=== PATIENT | female | born 1960 | race Two or more races ===

== ENCOUNTER 2018-05-13 17:16 | Emergency (ER) | payer OTHER ==
[~2018-05-13] VITALS: Ht 152.4 cm; Wt 68.9 kg
[2018-05-13] MEDS ORDERED: diphenhydrAMINE HCL 50 MG/ML VIAL ONE (17:44)
[2018-05-13] MEDS ORDERED: METOCLOPRAMIDE HCL 10 MG/2 ML VIAL ONE (17:44)
[2018-05-13 17:50] LABS: BASOPHILS # (AUTO) 0.2 /CMM (0.0-0.2); BASOPHILS % (AUTO) 2.7 % (0.0-2.0); EOSINOPHILS % (AUTO) 1.9 % (0.0-6.0); HEMATOCRIT 42 % (33-45); HEMOGLOBIN 13.9 g/dL (11.5-14.8); LYMPHOCYTES % (AUTO) 21.9 % (20.0-44.0); MEAN CORPUSCULAR HEMOGLOBIN 32 PG (26.0-33.0); MEAN CORPUSCULAR HGB CONC 34 g/dl (31.0-36.0); MEAN CORPUSCULAR VOLUME 94 fL (82-100); MONOCYTES % (AUTO) 11.5 % (2.0-12.0); NEUTROPHILS # (AUTO) 5.6 /CMM (1.8-8.9); PLATELET COUNT (AUTO) 255 /CMM (150-450); RDW COEFFICIENT OF VARIATION 12.4 (11.5-15.0); RED BLOOD CELL COUNT(AUTO) 4.42 MIL/uL (4.0-5.2)
[2018-05-13] MEDS: IV NS 0.9% 1,000 ML BAG IV ONE (17:52)
[2018-05-13] MEDS: diphenhydrAMINE HCL 50 MG/ML VIAL IV ONE (17:53)
[2018-05-13] MEDS: METOCLOPRAMIDE HCL 10 MG/2 ML VIAL IV ONE (17:59)
[2018-05-13] MEDS: IV NS 0.9% 250 ML BAG IV ONE (18:01)
[2018-05-13 18:03] LABS: CALCIUM, SERUM 8.9 mg/dL (8.5-10.1); CARBON DIOXIDE 24 mmol/L (21-32); CHLORIDE 104 mmol/L (98-107); CREATININE 1.4 mg/dL (0.6-1.3); GLUCOSE 123 mg/dL (74-106); POTASSIUM 3.9 mmol/L (3.5-5.1); SODIUM SERUM 137 mmol/L (136-145); UREA NITROGEN, BLOOD 16 mg/dL (7-18)
[2018-05-13 18:09] LABS: ALANINE AMINOTRANSFERASE 35 U/L (12-78); ALBUMIN 3.7 g/dL (3.4-5.0); ALKALINE PHOSPHATASE 99 U/L (46-116); ASPARTATE AMINOTRANSFERASE 17 U/L (15-37); BILIRUBIN,DIRECT 0.1 mg/dL (0.0-0.2); BILIRUBIN,TOTAL 0.5 mg/dL (0.2-1.0); TOTAL PROTEIN, SERUM 7.2 g/dL (6.4-8.2)
[2018-05-13 18:10] LABS: TROPONIN I < 0.017 ng/mL (0.00-0.056)
[2018-05-13 18:20] LABS: INR 0.93 (0.85-1.15)
--- NOTE | 2018-05-13 18:43 | NUR ---
transportation technician at bedside to take patient for CT
[2018-05-13] MEDS ORDERED: MORPHINE SULFATE INJ 4 MG/ML DISP.SYRIN ONE (18:46)
[2018-05-13] MEDS: MORPHINE SULFATE INJ 2 MG/ML DISP.SYRIN IV ONE (18:51)
--- NOTE | 2018-05-13 19:26 | NUR ---
RECEIVED REPORT FROM ZARA LEGER FOR [facility]. PT RESTING IN BED WITH NO S/S OF DISTRESS NOTED. WILL CONTINUE TO MONITOR PT
[2018-05-13] MEDS ORDERED: KETOROLAC TROMETHAMINE INJ 60 MG/2 ML VIAL IM ONE (19:30)
[2018-05-13] MEDS ORDERED: KETOROLAC TROMETHAMINE INJ 30 MG/ML VIAL ONE (19:32)
[2018-05-13] MEDS: KETOROLAC TROMETHAMINE INJ 30 MG/ML VIAL IV ONE (19:33)
--- NOTE | 2018-05-13 20:03 | NUR ---
Patient discharged to home in stable condition. Written and verbal after care instructions given. Patient verbalizes understanding of instruction.IV removed. Catheter intact and site benign. Pressure and 4x4 applied to site. No bleeding noted. PT AMBULATED WITH STEADY GAIT NOTED.PT WAS HELPED BY FAMILY MEMBER TO CAR, NO S/S OF DISTRESS UPON DISCHARGE.
[2018-05-13 20:05] VITALS: BP 124/71
== END 2018-05-13 20:06 | disposition home or self-care (01) ==
LOC: ER 17:20
DX: G43.909 Migraine, unspecified, not intractable, without status migrainosus (principal); N28.9 Disorder of kidney and ureter, unspecified; E78.00 Pure hypercholesterolemia, unspecified; R42 Dizziness and giddiness; F41.9 Anxiety disorder, unspecified
CPT/HCPCS: 36415; 70450-TC; 71045-TC; 80048-TC; 80076-TC; 84484-TC; 85025-TC; 85730-TC; A4216; A4606; J1200; J1885; J2270; J2765; J7030; J7050; Z7610

== ENCOUNTER 2019-10-07 11:19 | Emergency (ER) | payer OTHER ==
[~2019-10-07] VITALS: Ht 152.4 cm; Wt 72.6 kg
[2019-10-07 11:29] VITALS: BP 130/85
[2019-10-07] MEDS ORDERED: LORAZEPAM 0.5 MG TABLET ONE (12:58)
[2019-10-07] MEDS ORDERED: IBUPROFEN 400 MG TABLET ONE (12:58)
[2019-10-07] MEDS ORDERED: IBUPROFEN 400 MG TABLET PO ONE (13:00)
[2019-10-07] MEDS ORDERED: LORAZEPAM 0.5 MG TABLET PO ONE (13:00)
== END 2019-10-07 13:31 | disposition home or self-care (01) ==
LOC: ER 11:19
DX: H61.22 Impacted cerumen, left ear (principal); F41.9 Anxiety disorder, unspecified; E78.00 Pure hypercholesterolemia, unspecified

== ENCOUNTER 2020-12-18 20:02 | Emergency (ER) | payer OTHER ==
[~2020-12-18] VITALS: Ht 157.5 cm; Wt 72.6 kg
[2020-12-18] MEDS ORDERED: CYCLOBENZAPRINE 10 MG TABLET PO ONE (21:30)
[2020-12-18] MEDS ORDERED: DEXAMETHASONE SOD PHOSPHATE 4 MG/ML VIAL IM ONE (21:30)
[2020-12-18] MEDS ORDERED: KETOROLAC TROMETHAMINE INJ 30 MG/ML VIAL IM ONE (21:30)
--- NOTE | 2020-12-18 21:30 | NUR ---
C/O LOWER BACK PAIN RADIATING TO THE LLE
[2020-12-18] MEDS ORDERED: KETOROLAC TROMETHAMINE INJ 30 MG/ML VIAL ONE (21:58)
[2020-12-18] MEDS ORDERED: DEXAMETHASONE SOD PHOSPHATE 4 MG/ML VIAL ONE (21:58)
--- NOTE | 2020-12-18 22:08 | NUR ---
PT WAS TAKEN TO THE CT
[2020-12-18] MEDS ORDERED: TRAM50TA2 PO (22:48)
[2020-12-18] MEDS ORDERED: HYDR-4303 PO (23:59)
--- NOTE | 2020-12-18 23:59 | NUR ---
PT is medically stable for dc. Patient discharged to home in stable condition. Written and verbal after care instructions given. Patient verbalizes understanding of instruction.
[2020-12-19 00:15] VITALS: BP 135/85
== END 2020-12-19 00:15 | disposition home or self-care (01) ==
LOC: ER 20:05
DX: M54.5 Low back pain (principal); G89.29 Other chronic pain; F41.9 Anxiety disorder, unspecified; E78.00 Pure hypercholesterolemia, unspecified; Z79.899 Other long term (current) drug therapy
CPT/HCPCS: 72131; 96372 ×2; 99284; J1100; J1885

== ENCOUNTER 2021-11-22 12:22 | Emergency (ER) | payer OTHER ==
[~2021-11-22] VITALS: Ht 152.4 cm; Wt 65.8 kg
[~2021-11-22 12:22] MED LIST: HYDR-4303 PO
[2021-11-22] MEDS ORDERED: HYDROMORPHONE INJ 2 MG/ML DISP.SYRIN IM ONE (13:00)
[2021-11-22] MEDS ORDERED: KETOROLAC TROMETHAMINE INJ 60 MG/2 ML VIAL IM ONE (13:00)
[2021-11-22] MEDS ORDERED: CYCLOBENZAPRINE 10 MG TABLET PO ONE (13:00)
[2021-11-22] MEDS ORDERED: DEXAMETHASONE 1 MG TABLET PO ONE (13:00)
--- NOTE | 2021-11-22 13:00 | NUR ---
BIBS FOR C/O WORSENING CHRONIC BACK PAIN 06/18,NO TRAUMA. WILL CONTINUE TO MONITOR THE PATIENT.
[2021-11-22] MEDS ORDERED: HYDROMORPHONE INJ 2 MG/ML DISP.SYRIN ONE (13:13)
[2021-11-22] MEDS ORDERED: DEXAMETHASONE 1 MG TABLET ONE ×2 (13:17→13:24)
[2021-11-22] MEDS ORDERED: CYCLOBENZAPRINE 10 MG TABLET ONE ×2 (13:18→13:28)
[2021-11-22] MEDS ORDERED: KETOROLAC TROMETHAMINE INJ 30 MG/ML VIAL ONE (13:23)
[2021-11-22] MEDS ORDERED: HYDROMORPHONE 1 MG/1 ML DISP.SYRIN ONE (13:23)
[2021-11-22] MEDS ORDERED: DEXAMETHASONE 4 MG TABLET ONE (13:24)
[2021-11-22] MEDS ORDERED: NAPR-1009 PO (13:40)
[2021-11-22] MEDS ORDERED: CYCL5TAB PO (13:40)
[2021-11-22] MEDS ORDERED: METH4TAB3 PO (13:40)
[2021-11-22] MEDS ORDERED: OXYC5TAB3 PO (13:40)
[2021-11-22] MEDS ORDERED: HYDR-4303 PO ×2 (13:41→16:10)
[2021-11-22 14:41] VITALS: BP 131/75
--- NOTE | 2021-11-22 14:41 | NUR ---
Patient discharged to home in stable condition. Written and verbal after care instructions given. Patient verbalizes understanding of instruction.
== END 2021-11-22 14:41 | disposition home or self-care (01) ==
LOC: ER 12:23
DX: M54.41 Lumbago with sciatica, right side (principal); G89.29 Other chronic pain; F41.9 Anxiety disorder, unspecified; E78.00 Pure hypercholesterolemia, unspecified; Z60.2 Problems related to living alone
CPT/HCPCS: 96372 ×2; 99284; J1170; J1885; J8540 ×2

== ENCOUNTER 2023-01-09 19:18 | Emergency (ER) | payer OTHER ==
[~2023-01-09] VITALS: Ht 152.4 cm; Wt 72.6 kg
[~2023-01-09 19:18] MED LIST changes: +CYCL5TAB PO; +METH4TAB3 PO; +NAPR-1009 PO
[2023-01-09 19:47] VITALS: BP 112/84
--- NOTE | 2023-01-09 19:47 | NUR ---
LOWER BACK PAIN RADIATING TO BLEs X 1 WEEK, PT DENIES TRAUMA PT STATES "MY SCIATICA PAIN CAME BACK"
[2023-01-09] MEDS ORDERED: MORPHINE SULFATE INJ 4 MG/ML DISP.SYRIN ONE (19:58)
[2023-01-09] MEDS ORDERED: predniSONE 20 MG TABLET ONE ×2 (19:58→20:06)
[2023-01-09] MEDS ORDERED: MORPHINE SULFATE INJ 2 MG/ML DISP.SYRIN IM ONE (20:00)
[2023-01-09] MEDS ORDERED: predniSONE 50 MG TABLET PO ONE (20:00)
[2023-01-09] MEDS ORDERED: PRED20TA PO (21:25)
[2023-01-09] MEDS ORDERED: TRAM50TA2 PO (21:25)
== END 2023-01-09 21:30 | disposition home or self-care (01) ==
LOC: ER 19:23
DX: G89.29 Other chronic pain (principal); M54.42 Lumbago with sciatica, left side; M54.41 Lumbago with sciatica, right side; E78.00 Pure hypercholesterolemia, unspecified; F41.9 Anxiety disorder, unspecified; Z60.2 Problems related to living alone
CPT/HCPCS: 99283; 96372; J2270

== ENCOUNTER 2023-04-10 01:50 | Emergency (ER) | payer OTHER ==
[~2023-04-10] VITALS: Ht 152.4 cm; Wt 72.6 kg
[~2023-04-10 01:50] MED LIST changes: +PRED20TA PO; +TRAM50TA2 PO
--- NOTE | 2023-04-10 02:14 | NUR ---
Bib family c/o woke up and felt an "explosion" in her head, pt feels dizziness and headache rated as 7/10. Pt placed on bed, attached to the monitor.
[2023-04-10] MEDS ORDERED: IBUPROFEN 400 MG TABLET ONE (02:29)
[2023-04-10] MEDS ORDERED: IBUPROFEN 400 MG TABLET PO ONE (02:30)
--- NOTE | 2023-04-10 02:45 | NUR ---
PATIENT TAKEN TO CT BY [facility] VIA GURNEY.
--- NOTE | 2023-04-10 02:57 | NUR ---
PATIENT RETURNED TO ROOM FROM CT.
[2023-04-10] MEDS ORDERED: NAPR-1164 PO (06:57)
--- NOTE | 2023-04-10 07:24 | NUR ---
Patient discharged to home in stable condition. Written and verbal after care instructions given. Patient verbalizes understanding of instruction.
[2023-04-10 07:25] VITALS: BP 128/78; TEMP 98.3; O2SAT 99
== END 2023-04-10 07:25 | disposition home or self-care (01) ==
LOC: ER 01:53
DX: R51.9 Headache, unspecified (principal); F41.9 Anxiety disorder, unspecified; E78.00 Pure hypercholesterolemia, unspecified; Z79.899 Other long term (current) drug therapy; Z60.2 Problems related to living alone
CPT/HCPCS: 70450-TC